=== PATIENT | female | born 1975 | race Two or more races ===

== ENCOUNTER 2023-11-01 08:00 | Day surgery (SDC) | payer OTHER ==
[~2023-11-01] VITALS: Ht 162.6 cm; Wt 77.1 kg
[2023-11-01] MEDS ORDERED: CEFAZOLIN SODIUM 1,000 MG VIAL IV ONE (15:30)
[2023-11-01] MEDS ORDERED: LIDOCAINE HCL 1%/EPINEPHRINE 20ML VIAL IJ ONE (15:45)
[2023-11-01] MEDS ORDERED: LIDOCAINE HCL 1% 20ML VIAL IJ ONE (15:45)
[2023-11-01] MEDS ORDERED: CEFAZOLIN SODIUM 1,000 MG VIAL IV SCH (16:15)
[2023-11-01] MEDS ORDERED: FAMOTIDINE/PF 20 MG/10 ML SYRINGE IV SCH (16:15)
== END 2023-11-01 17:40 | disposition home or self-care (01) ==
LOC: CIR.AMB 08:00
PROVIDERS: ATTEND Specialist
DX: D21.6 Benign neoplasm of connective and other soft tissue of trunk, unspecified (principal)